=== PATIENT | male | born 2005 | race Caucasian/White ===

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

== ENCOUNTER 2025-04-19 11:54 | Emergency (ER) | payer OTHER ==
[~2025-04-19] VITALS: Ht 167.6 cm; Wt 55.5 kg
[2025-04-19 14:38] LABS: BASO # 0.1 10^3/uL (0.0-0.2); BASO % 0.7 % (0.0-1.0); EOS # 0.4 10^3/uL (0.0-0.5); EOS % 3.6 % (0.0-3.0); LYMPH # 1.9 10^3/uL (1.5-5.0); LYMPH % 15.8 % (24.0-44.0); MONO # 0.5 10^3/uL (0.0-0.8); MONO % 3.8 % (2.0-8.0); NEUTROPHILS # 8.9 10^3/uL (1.5-8.5); NEUTROPHILS % 75.8 % (36.0-66.0); PLATELET COUNT, AUTOMATED 232 10^3/uL (150-450)
[2025-04-19] MEDS: NS (Normal Saline) 0.9% 1,000 ML IV ONE (15:28)
[2025-04-19] MEDS: ONDANSETRON 4MG/2ML VIAL IV ONE (15:30)
[2025-04-19] MEDS: KETOROLAC 30 MG/ML 1 ML VIAL IV ONE (15:30)
[2025-04-19 16:01] LABS: ALT/SGPT 12 U/L (7.0-40); AST/SGOT 17 U/L (<34); CALCIUM LEVEL 9.0 MG/DL (8.5-10.1); CARBON DIOXIDE LEVEL 28 MMOL/L (20-31); CHLORIDE LEVEL 106 MMOL/L (98-107); CREATININE FOR GFR 0.78 MG/DL (0.70-1.30); GLOMERULAR FILTRATION RATE > 90.0 (>60); MAGNESIUM LEVEL 1.8 MG/DL (1.8-2.4); POTASSIUM SERUM 4.1 MMOL/L (3.5-5.1); SODIUM LEVEL 142 MMOL/L (136-145)
[2025-04-19 16:03] LABS: FREE T4 1.21 NG/DL (0.83-1.43)
[2025-04-19 16:19] LABS: C REACTIVE PROTEIN QUANTITATIV < 0.50 MG/DL (<1.0)
[2025-04-19 16:31] VITALS: TEMP 98.4
[2025-04-19] MEDS: GASTROGRAFIN SOLUTION 30ML PO SCH (17:28)
[2025-04-19 18:00] VITALS: BP 115/67; O2SAT 100
[2025-04-19] MEDS ORDERED: ISOVUE-370 76% 100 ML VIAL As Ordered ONE (18:41)
== END 2025-04-19 19:00 | disposition left against medical advice (07) ==
LOC: M ED 11:54
DX: R10.9 Unspecified abdominal pain (principal); R00.1 Bradycardia, unspecified; F17.200 Nicotine dependence, unspecified, uncomplicated; F12.10 Cannabis abuse, uncomplicated; Z53.9 Procedure and treatment not carried out, unspecified reason
CPT/HCPCS: 71045; 74177; 80048; 80076; 83690; 83735; 84439; 84443; 85025; 85652; 86140; 87486; 87581; 87633; 87798; 93005; 93041; 96374; 99284; J1885; J2405; Q9963; Q9967